=== PATIENT | female | born 1960 | race Caucasian/White ===

== ENCOUNTER 2021-02-17 18:26 | Emergency (ER) | payer MEDICAID ==
[~2021-02-17] VITALS: Ht 165.1 cm; Wt 90.7 kg
--- NOTE | 2021-02-17 21:58 | NUR ---
PT BIBS C/O HALLUCINATIONS "HEARING LOUD VOICES" -S/I -H/I.
[2021-02-17 22:16] LABS: BASOPHILS # (AUTO) 0.1 K/uL (0.0-0.2); BASOPHILS % (AUTO) 0.6 % (0.0-2.0); EOSINOPHILS % (AUTO) 1.6 % (0.0-6.0); HEMATOCRIT 44 % (33-45); HEMOGLOBIN 14.2 g/dL (11.5-14.8); LYMPHOCYTES # (AUTO) 2.4 K/uL (0.8-4.8); LYMPHOCYTES % (AUTO) 25.6 % (20.0-44.0); MEAN CORPUSCULAR HGB CONC 32 g/dl (31.0-36.0); MEAN CORPUSCULAR VOLUME 96 fL (82-100); MONOCYTES # (AUTO) 0.6 K/uL (0.1-1.30); MONOCYTES % (AUTO) 6.7 % (2.0-12.0); NEUTROPHILS # (AUTO) 6.1 K/uL (1.8-8.9); NEUTROPHILS % (AUTO) 65.5 % (43.0-81.0); PLATELET COUNT (AUTO) 207 K/uL (150-450); RED BLOOD CELL COUNT(AUTO) 4.57 MIL/uL (4.0-5.2); WHITE BLOOD COUNT (AUTO) 9.3 K/uL (4.3-11.0)
[2021-02-17 22:29] LABS: ALANINE AMINOTRANSFERASE 36 U/L (12-78); ALBUMIN 3.6 g/dL (3.4-5.0); ALCOHOL, BLOOD < 3 mg/dL (0-0); ALKALINE PHOSPHATASE 108 U/L (46-116); ASPARTATE AMINOTRANSFERASE 30 U/L (15-37); BILIRUBIN,DIRECT 0.1 mg/dL (0.0-0.2); BILIRUBIN,TOTAL 0.2 mg/dL (0.2-1.0); CALCIUM, SERUM 8.9 mg/dL (8.5-10.1); CARBON DIOXIDE 26 mmol/L (21-32); CHLORIDE 106 mmol/L (98-107); CREATININE 0.9 mg/dL (0.6-1.3); GLUCOSE 86 mg/dL (74-106); POTASSIUM 3.8 mmol/L (3.5-5.1); SODIUM SERUM 143 mmol/L (136-145); UREA NITROGEN, BLOOD 14 mg/dL (7-18)
[2021-02-17 22:30] LABS: ACETAMINOPHEN < 2 ug/ml (10-30)
[2021-02-17 22:34] LABS: BILIRUBIN,URINE Negative (NEGATIVE); COLOR,URINE YELLOW (YELLOW); LEUKOCYTE ESTERASE ,URINE Negative (NEGATIVE); NITRITE, URINE Negative (NEGATIVE); PROTEIN,URINE Negative (NEGATIVE); UGLUCOSE Negative (NEGATIVE)
[2021-02-17 22:39] LABS: BACTERIA,URINE Rare /HPF (None Seen); SQUAMOUS EPITHELIAL CELL,UR Few /HPF (None Seen); WBC,URINE NONE SEEN /HPF (0-3)
[2021-02-17] MEDS ORDERED: OLANZAPINE 10 MG VIAL IM ONE ×2 (22:52→23:00)
--- NOTE | 2021-02-18 00:47 | NUR ---
FACESHEET AND CLINICALS FA[facility]ED TO [facility].
--- NOTE | 2021-02-18 02:08 | NUR ---
PT ACCE[facility] BY [facility] HAMILTON. # FOR REPORT [phone]
--- NOTE | 2021-02-18 02:11 | NUR ---
[facility] CALLED FOR TRANSPORT. ETA 20 MINUTES.
--- NOTE | 2021-02-18 02:33 | NUR ---
REPORT GIVEN TO YUMI GEORGE
--- NOTE | 2021-02-18 02:37 | NUR ---
[facility] AT BEDSIDE FOR TRANSPORT TO [facility]
--- NOTE | 2021-02-18 02:43 | NUR ---
PT BEING TRANSFERRED TO [facility].
[2021-02-18 02:44] VITALS: BP 126/88
== END 2021-02-18 02:48 ==
LOC: ER 18:36
DX: F29 Unspecified psychosis not due to a substance or known physiological condition (principal); F15.10 Other stimulant abuse, uncomplicated; Z59.0 Homelessness; Z20.822 Contact with and (suspected) exposure to COVID-19; R45.851 Suicidal ideations
CPT/HCPCS: 36415; 80048; 80076; 80143; 80307; 80320; 81001; 85025; 87426; 99285; C9803; J3490; G0480

== ENCOUNTER 2021-04-08 07:16 | Emergency (ER) | payer MEDICAID ==
[~2021-04-08] VITALS: Ht 165.1 cm; Wt 74.8 kg
[2021-04-08] MEDS ORDERED: OLANZAPINE 5 MG TABLET PO ONE (08:00)
[2021-04-08] MEDS ORDERED: OLANZAPINE 5 MG TABLET ONE (08:12)
[2021-04-08 08:23] LABS: BASOPHILS # (AUTO) 0.1 K/uL (0.0-0.2); BASOPHILS % (AUTO) 0.7 % (0.0-2.0); EOSINOPHILS % (AUTO) 1.9 % (0.0-6.0); HEMATOCRIT 41 % (33-45); HEMOGLOBIN 13.1 g/dL (11.5-14.8); LYMPHOCYTES # (AUTO) 1.6 K/uL (0.8-4.8); LYMPHOCYTES % (AUTO) 20.3 % (20.0-44.0); MEAN CORPUSCULAR HGB CONC 32 g/dl (31.0-36.0); MEAN CORPUSCULAR VOLUME 97 fL (82-100); MONOCYTES # (AUTO) 0.4 K/uL (0.1-1.30); MONOCYTES % (AUTO) 4.6 % (2.0-12.0); NEUTROPHILS # (AUTO) 5.8 K/uL (1.8-8.9); NEUTROPHILS % (AUTO) 72.5 % (43.0-81.0); PLATELET COUNT (AUTO) 217 K/uL (150-450); RED BLOOD CELL COUNT(AUTO) 4.21 MIL/uL (4.0-5.2); WHITE BLOOD COUNT (AUTO) 8.1 K/uL (4.3-11.0)
[2021-04-08 08:25] LABS: BILIRUBIN,URINE NEGATIVE (NEGATIVE); COLOR,URINE YELLOW (YELLOW); LEUKOCYTE ESTERASE ,URINE NEGATIVE (NEGATIVE); NITRITE, URINE NEGATIVE (NEGATIVE); PROTEIN,URINE NEGATIVE (NEGATIVE); UGLUCOSE NEGATIVE (NEGATIVE); UROBILINOGEN,URINE 0.2 EU/dL (0.2)
--- NOTE | 2021-04-08 08:30 | NUR ---
BIBS. HEARING VOICES - "TELLING HER TO SAVE SOMEONE". DENIES SI NOR HI.SEEKING VOLUNTARY ADMISSION. ALERT AND ORIENTED X4. DENIES PAIN. IN ROOM AIR AND DENIES SOB. RESPIRATION REGULAR AND UNLABORED. WILL CONTINUE TO MONITOR THE PATIENT.
[2021-04-08 08:33] LABS: CALCIUM, SERUM 8.1 mg/dL (8.5-10.1); CARBON DIOXIDE 29 mmol/L (21-32); CHLORIDE 104 mmol/L (98-107); CREATININE 0.9 mg/dL (0.6-1.3); GLUCOSE 114 mg/dL (74-106); POTASSIUM 3.5 mmol/L (3.5-5.1); SODIUM SERUM 139 mmol/L (136-145); UREA NITROGEN, BLOOD 13 mg/dL (7-18)
[2021-04-08 08:39] LABS: ALANINE AMINOTRANSFERASE 33 U/L (12-78); ALBUMIN 3.4 g/dL (3.4-5.0); ALKALINE PHOSPHATASE 114 U/L (46-116); ASPARTATE AMINOTRANSFERASE 24 U/L (15-37); BILIRUBIN,DIRECT 0.1 mg/dL (0.0-0.2); BILIRUBIN,TOTAL 0.1 mg/dL (0.2-1.0); TOTAL PROTEIN, SERUM 6.6 g/dL (6.4-8.2)
[2021-04-08 08:41] LABS: ACETAMINOPHEN < 10 ug/ml (10-30); ALCOHOL, BLOOD < 3 mg/dL (0-0)
[2021-04-08 10:01] VITALS: BP 126/88
--- NOTE | 2021-04-08 12:05 | NUR ---
Patient eloped from facility. Dr. Rodas notified.
--- NOTE | 2021-04-08 12:46 | NUR ---
SW attempted to meet with pt. for an interview. SW arrived to ED and pt. has departed and SW was not able to meet with pt.
== END 2021-04-08 12:10 | disposition left against medical advice (07) ==
LOC: ER 07:17
DX: R44.0 Auditory hallucinations (principal); F17.200 Nicotine dependence, unspecified, uncomplicated; Z59.00 Homelessness unspecified
CPT/HCPCS: 36415; 80048-TC; 80076-TC; 85025-TC; G0480

== ENCOUNTER 2021-07-01 11:00 | Emergency (ER) | payer MEDICAID, OTHER ==
[~2021-07-01] VITALS: Ht 165.1 cm; Wt 54.4 kg
--- NOTE | 2021-07-01 11:00 | NUR ---
PT BIB SELF C/O HEARING VOICES. -HI/SI. REQUESTING VOLUNTARY PSYCH ADMISSION TO [facility]. PT IS AAOX4, NOT IN RESPIRATORY DISTRESS, V/S STABLE, KEPT RESTED AND COMFORTABLE. WILL CONTINUE TO MONITOR.
--- NOTE | 2021-07-01 11:40 | NUR ---
URINE COLLECTED AND SENT TO LAB
--- NOTE | 2021-07-01 11:47 | NUR ---
COVID SWAB DONE AND SENT TO LAB
[2021-07-01 12:27] LABS: BASOPHILS # (AUTO) 0.1 K/uL (0.0-0.2); BASOPHILS % (AUTO) 1.3 % (0.0-2.0); EOSINOPHILS % (AUTO) 1.4 % (0.0-6.0); HEMATOCRIT 46 % (33-45); HEMOGLOBIN 15.1 g/dL (11.5-14.8); LYMPHOCYTES # (AUTO) 2.8 K/uL (0.8-4.8); LYMPHOCYTES % (AUTO) 29.5 % (20.0-44.0); MEAN CORPUSCULAR HGB CONC 33 g/dl (31.0-36.0); MEAN CORPUSCULAR VOLUME 93 fL (82-100); MONOCYTES # (AUTO) 0.6 K/uL (0.1-1.30); MONOCYTES % (AUTO) 5.9 % (2.0-12.0); NEUTROPHILS # (AUTO) 5.9 K/uL (1.8-8.9); NEUTROPHILS % (AUTO) 61.9 % (43.0-81.0); PLATELET COUNT (AUTO) 307 K/uL (150-450); WHITE BLOOD COUNT (AUTO) 9.4 K/uL (4.3-11.0)
[2021-07-01 12:50] LABS: BILIRUBIN,URINE NEGATIVE (NEGATIVE); COLOR,URINE YELLOW (YELLOW); LEUKOCYTE ESTERASE ,URINE NEGATIVE (NEGATIVE); NITRITE, URINE NEGATIVE (NEGATIVE); PH,URINE 6.5 (5.0-8.0); PROTEIN,URINE NEGATIVE (NEGATIVE); UGLUCOSE NEGATIVE (NEGATIVE); UROBILINOGEN,URINE 0.2 EU/dL (0.2)
[2021-07-01 13:02] LABS: ALANINE AMINOTRANSFERASE 24 U/L (12-78); ALBUMIN 3.7 g/dL (3.4-5.0); ALKALINE PHOSPHATASE 163 U/L (46-116); ASPARTATE AMINOTRANSFERASE 14 U/L (15-37); BILIRUBIN,DIRECT 0.1 mg/dL (0.0-0.2); BILIRUBIN,TOTAL 0.1 mg/dL (0.2-1.0); CALCIUM, SERUM 9.1 mg/dL (8.5-10.1); CARBON DIOXIDE 32 mmol/L (21-32); CHLORIDE 103 mmol/L (98-107); CREATININE 1.1 mg/dL (0.6-1.3); GLUCOSE 98 mg/dL (74-106); POTASSIUM 3.8 mmol/L (3.5-5.1); SODIUM SERUM 138 mmol/L (136-145); TOTAL PROTEIN, SERUM 7.5 g/dL (6.4-8.2); UREA NITROGEN, BLOOD 23 mg/dL (7-18)
[2021-07-01 13:10] LABS: ACETAMINOPHEN 0 ug/ml (10-30); ALCOHOL, BLOOD < 3 mg/dL (0-0)
--- NOTE | 2021-07-01 18:46 | NUR ---
FA[facility]ED CLINICALS TO [facility]
--- NOTE | 2021-07-01 21:00 | NUR ---
PT ROUNDED. PT IS RESTING. PT VERBALIZED THAT SHE IS FEELING SUICIDAL BECAUSE OF THE VOICES SHE IS HEARING. DENIES ANY PLANS.
--- NOTE | 2021-07-01 21:10 | NUR ---
PT ACCEPTED AT [facility]. REPORT GIVEN TO YUMI GEORGE SUPERVISOTR FOR [facility]RA[facility]AN
--- NOTE | 2021-07-01 21:15 | NUR ---
CALLED [facility] FOR TRANSPORT TO [facility]. AWAITING FOR ETA
--- NOTE | 2021-07-02 02:00 | NUR ---
Pt picked up by [facility] from [facility] transport. pt is in stable condition. Pt is ambulatory on steady gait.
[2021-07-02 02:36] VITALS: BP 134/87
== END 2021-07-02 02:02 ==
LOC: ER 11:03
DX: R45.851 Suicidal ideations (principal); Z59.01 Sheltered homelessness; F20.9 Schizophrenia, unspecified; F31.9 Bipolar disorder, unspecified; R03.0 Elevated blood-pressure reading, without diagnosis of hypertension; Z20.822 Contact with and (suspected) exposure to COVID-19; F17.200 Nicotine dependence, unspecified, uncomplicated
CPT/HCPCS: 36415; 80048; 80076; 80143; 80307; 80320; 81003; 85025; 87426; 99285; C9803; G0480